=== PATIENT | female | born 1975 | race Caucasian/White ===

== ENCOUNTER 2024-07-26 20:55 | Inpatient (IN) | payer MEDICAID, SELFPAY ==
[2024-07-26] MEDS: miSOPROStoL 25 MCG/0.25 TABLET VAGINAL (00:01)
[2024-07-26 21:08] VITALS: BP 112/60; PULSE 73
[2024-07-26 21:10] VITALS: TEMP 37.2
[2024-07-26 21:50] LABS: Basophils Absolute Auto 0.02 K/uL (0.00-0.30); Basophils Percent Auto 0.2 % (0.0-3.0); Eosinophils Absolute Auto 0.08 K/uL (0.00-0.50); Eosinophils Percent Auto 0.8 % (0.0-7.0); Hematocrit 38.1 % (33.0-51.0); Hemoglobin* 12.7 gm/dL (12.0-16.0); Immature Granulocytes Abs Auto 0.02 K/uL (0.00-0.30); Immature Granulocytes Pct Auto 0.2 %; Lymphocytes Percent Auto 15.2 % (20-44); Mean Corpuscular HGB Conc 33 gm/dL (32-36); Mean Corpuscular Hemoglobin 31 pg (26-34); Mean Corpuscular Volume 93 fL (80-100); Monocytes Percent Auto 9.8 % (0.0-11.0); Neutrophils Percent Auto 73.8 % (42.0-72.0); Platelet Count* 159 K/uL (140-440); RDW Coefficient of Variation % 13.7 % (11.5-15.5); Red Blood Count 4.11 m/uL (4.00-5.20); White Blood Count* 10.57 K/uL (4.50-11.00)
[2024-07-26] MEDS: LACTATED RINGERS 1000 ML 1,000 ML 125 ML IV (21:58)
[2024-07-26] MEDS: AMPICILLIN 2 GM in 0.9 % SODIUM CHLORIDE Mini-bag 100 ML IVPB (21:59)
[2024-07-26 22:06] LABS: Slide Review Reflex No
[2024-07-26] MEDS: ACETAMINOPHEN 500 MG TABLET 1000 MG PO (22:30)
[2024-07-26] MEDS: hydrOXYzine pamoate 25 MG CAPSULE 100 MG PO (22:52)
[2024-07-26 23:52] VITALS: BP 118/68; PULSE 76
[2024-07-26 23:54] VITALS: TEMP 36.6
[2024-07-27] VITALS (46 sets, daily range): BP systolic 97–159; BP diastolic 51–115; PULSE 63–125; RESP 16–20; TEMP 36.4–37.1; O2SAT 88–100; BMI 28.5
[2024-07-27] MEDS: AMPICILLIN 1 GM in 0.9 % SODIUM CHLORIDE Mini-bag 100 ML IVPB ×3 (02:03→13:50)
[2024-07-27] MEDS: ACETAMINOPHEN 500 MG TABLET 1000 MG PO (04:05)
--- NOTE | 2024-07-27 06:58 | PM.OBHPLI ---
OB - H&P: HPI Labor/Induction History of Present Illness Time Seen by Provider: 06:00 Date Seen: 07/27/24 Chief Complaint: The patient is a 49 year old 7 para 3 at 39wks gestation by 7wk, who presented last evening for cervical ripening due to AMA. Chief complaint: IOL- AMA : 7 Para: 3 Date of last menstrual period: 08/30/23 Estimated date of delivery: 06/05/24 Gestational age based on last menstrual period: 49 Narrative: Leena Sofia is a 49 year old 7 para 3 at 39wks gestation by 7wk, who presented last evening for cervical ripening due to AMA. She had negative Bryan and level 2 anatomy US was wnl. Growth US 35wks with EFW 88%. Has had weekly BPP's since 32wks, most recent yesterday 01/13, cephalic position. No contractions yesterday. No LOF, no bleeding. Good FM. no headaches or vision changes. She has overall had uncomplicated . She has hx gaining 40-50pounds with prior pregnancies. Prior babies weight 8#1oz, 7# 14oz and 7#7oz. EFW this 88% at 35 wks (would be approximate 8#12oz baby at 39wks) History of Present Dating criteria: based on 1st trimester US only care: good care Ultrasounds: normal mid trimester US and other (35 wk growth US EFW 88%) Medical complications: none Labs Blood type: O (+) positive Rubella: immune RPR/VDLR: nonreactive GBS status: positive HBsAG: negative Meds Home Medications and Allergies Home Medications ?Medication ?Instructions ?Recorded ?Confirmed ?Type No Known Home Medications 07/26/24 07/26/24 History Allergies Allergy/AdvReac Type Severity Reaction Status Date / Time No Known Drug Allergies Allergy Verified 07/26/24 21:50 OB - H&P: Exam Physical Exam: Vital signs: Temp Pulse BP 98.4 F 75 105/51 L 07/27/24 05:06 07/27/24 04:59 07/27/24 04:59 Constitutional: Constitutional: no acute distress Routine HEENT Exam: Head: Present normal inspection ENT: Present mucous membranes moist Routine Respiratory Exam: Respiratory: Present CTA bilaterally Routine Cardiovascular Exam: Cardiovascular: RRR Detailed Labor and Delivery Exam: Patient Gravid: Yes Dilation (cm): 2 Effacement (%): 50 Cervix position: posterior Consistency: firm Fetus (Single): Station: -3 Amniotic Membrane Status: intact Heart Rate Baseline: 150 Monitor Accelerations: Present Monitor Decelerations: Late (occasional variables, lates) Halfway Variability: Moderate (6-25) Routine Psychiatric Exam: Present normal affect and cooperative OB - Results Labs Labs: Short CBC 07/26/24 Range/Units 21:42 WBC 10.57 (4.50-11.00) K/uL Hgb 12.7 (12.0-16.0) gm/dL Hct 38.1 (33.0-51.0) % Plt Count 159 (140-440) K/uL OB - Problem Based A/P Additional Plan (1) Advanced maternal age (AMA) in : Status: Acute (2) Term : Status: Acute Plan [id number] at 39wks here for induction due to AMA -GBS positive so antibiotics started last night -Received one dose cytotec for cervical ripening overnight. FHT's since baseline typically 140-150's with good variability and accels but with occasional decels that can be variable to late decels approximately 2-4 times an hour and can last 1-3 minutes, typically with moi 120-130 but has been deeper to 80 at times. She has received IVF bolus. -Plan monitor FHT after IVF bolus. Cervix still unfavorable. plan likely cook or pitocin but will monitor FHT's and let OB know prior to starting. 07/27/24 750 Addn: reviewed strip and discussed with OB surgeon corporate communications specialist. Plan is to start pitocin. Reviewed plan with pt and spouse and all ?'s answered. They were comfortable with plan.
[2024-07-27] MEDS: OXYTOCIN 30 unit/500 ML in NS 30 UNIT/500 ML BAG IVPB (07:57)
[2024-07-27] MEDS: LACTATED RINGERS 1000 ML 1,000 ML IV (12:50)
--- NOTE | 2024-07-27 13:13 | P.OBPN_ITS ---
Subjective Time Seen by Provider: 13:00 Date Seen: 07/27/24 Narrative: I evaluated strip around noon for induction followup and noted patient is having recurrent late decelerations/variables. Called and asked RN to check cervix and reassess. RN reported pt feeling mild contractions and 3/60/-3. Due to recurrent late decels, pitocin was cut in 1/2 (from 16 to 8) and IVF bolus started and I returned to Center. Pt reported to me contractions are more intense in last 20 min but still mild, 3/10. Objective Vital Signs: Last Vital Signs Temp 97.8 F 07/27/24 13:02 Pulse 66 07/27/24 13:06 Resp 20 07/27/24 13:02 BP 113/71 07/27/24 13:06 Pulse Ox 99 07/27/24 13:06 Pelvic Exam Dilation (cm): 3 Effacement (%): 60 Station: -3 Comments: head engaged, bulging bag Contractions Monitor mode: External Contraction Frequency: q2-3 Contraction pattern: Regular Contraction intensity: Mild Pitocin Rate (mU/min): 8 Assessment Assessment: induction ongoing Station: -3 Amniotic Membrane Status: AROM Heart Rate Baseline: 150 Verification Lead Variability: Moderate (6-25) Monitor Accelerations: Present Monitor Decelerations: Late (recurrent) Plan Plan: 49yo at 39wks here for induction due to AMA -has received cytotec x 1 overnight, pitocin started this morning. Now with recurrent late decels so pitocin decreased. I discussed with Dr Nava who recommended AROM if able. Discussed with pt current situation and trying to proceed with attempting vaginal delivery vs c/s. Reviewed at length with her and , all ?'s answered. Reviewed possible outcomes, options and risk vs benefits. Pt and agreed with proceeding with AROM. AROM performed with clear fluid. Will monitor FHT's closely +GBS, on abxs since last evening
[2024-07-27] MEDS: ROPIVACAINE 0.2% 100 ml 100 ML 12 MG EPIDURAL (16:16)
[2024-07-27] MEDS: LIDOCAINE 2% (PF) 5 ML VIAL EPIDURAL (16:16)
--- NOTE | 2024-07-27 16:17 | W.ANESCHARGE ---
Anesthesia Charges Start Date/Time Anesthesia Start Date: 07/27/24 Anesthesia Start Time: 15:55 Stop Date/Time Anesthesia Stop Date: 07/27/24 Anesthesia Stop Time: 16:25
--- NOTE | 2024-07-27 16:18 | P.ANBPRC_ITS ---
[facility] Medical History (Updated 07/27/24 @ 07:14 by Vanessa Cohen, DO) Colorectal polyp detected on colonoscopy ?K63.5 - Polyp of colon (ICD-10) Social History What is your current living situation?: I presently have a place to live Problems where you live: no known problems In the past 12 months, utilities in danger of being shut off: no In past 12 months, lack of transportation kept you from medical appts, meetings, work, or getting things needed for daily living: no In the past 12 mos, have been you worried that your food would run out before you had money to buy more?: never true In the past 12 mos, the food you bought just didn't last and you didn't have money to buy more?: never true Smoking Status: Never smoker How often does anyone, including family, friends and others, physically hurt you : never How often does anyone, including family, friends and others, insult or talk down to you: never How often does anyone, including family, friends and others, threaten you with harm: never How often does anyone, including family, friends and others, scream or curse at you: never Meds Home Medications and Allergies Home Medications ?Medication ?Instructions ?Recorded ?Confirmed ?Type No Known Home Medications 07/26/24 07/26/24 History Allergies Allergy/AdvReac Type Severity Reaction Status Date / Time No Known Drug Allergies Allergy Verified 07/26/24 21:50 Results Labs Labs: Laboratory Results - last 24 hr 07/26/24 21:42 WBC 10.57 RBC 4.11 Hgb 12.7 Hct 38.1 MCV 93 MCH 31 MCHC 33 RDW Coeff of Alonzo 13.7 Plt Count 159 Neut % (Auto) 73.8 H Lymph % (Auto) 15.2 L [place]tinger % (Auto) 9.8 Eos % (Auto) 0.8 Baso % (Auto) 0.2 Neut # (Auto) 7.80 H Lymph # (Auto) 1.60 [place] # (Auto) 1.00 H Eos # (Auto) 0.08 Baso # (Auto) 0.02 Abs Immat Gran (auto) 0.02 Imm/Tot Granulo (auto) 0.2 Blood Type O Positive Antibody Screen NEGATIVE Vital Signs Vital Signs: Last Vital Signs Temp 97.7 F 07/27/24 15:06 Pulse 67 07/27/24 16:16 Resp 20 07/27/24 15:06 BP 121/63 07/27/24 16:16 Pulse Ox 98 07/27/24 16:14 Weight: 83.915 kg Height: 171.45 cm Anesthesia Procedures Epidural Insertion Patient Location: OB Start Time: 15:55 Stop Time: 16:25 Start Date: 07/27/24 Stop Date: 07/27/24 Reason for Block: primary anesthetic Patient Position: sitting Performed By: Torey Billy Preanesthetic Checklist: IV checked, risks and benefits discussed, surgical consent, monitors and equipment checked, pre-op evaluation, timeout performed and anesthesia consent Prep: chlorhexidine gluconate Monitoring: blood pressure monitoring, plastics supervisor, continuous pulse oximetry and heart rate Approach: midline Vertebral Space: lumbar (1-5) Needle Type: Tuohy needle Injection Technique: continuous catheter (catheter) Needle gauge: 17 Needle Length (cm): 10 cm Needle Insertion Depth (cm): 5 Catheter Gauge: 19 Catheter Type: multi-orifice Catheter at skin depth (cm): 10 Test Dose Result: negative and lidocaine 1.5% with epinephrine 1 to 200,000
[2024-07-27] MEDS: miSOPROStoL 800 MCG/4 TABLET PR (17:19)
[2024-07-27] MEDS: TRANEXAMIC ACID 100 MG/ML INJ 1000 MG IV (17:30)
--- NOTE | 2024-07-27 20:20 | W.PM.VAGD1_ITS ---
Procedure Delivery date: 07/27/24 Procedure Done: Global Procedure Details: The patient is a 49 year-old admitted on 07/26/24 at 38w6d gestation for cervical ripening prior to induction.? Cervical exam on admission was 2 cm/thick/-3 station with membranes intact in vertex presentation.? She was not feeling any contractions.? heart rate demonstrated baseline 140-150 bpm with moderate variability, + accelerations, - decelerations; a category 1 tracing.? Pt was started on IV abx on admission evening of 07/26/24 for GBS positive status. She received 1 dose vaginal cytotec. FHT's developed occasional decelerations requiring IVF and further monitoring. Pitocin was started morning of 07/27/24 and increased per protocol. Fetus developed recurrent late decelerations. Pitocin cut in half and IVF given. Case discussed with OB surgeon who recommended AROM. AROM occurred at 1301 with clear fluid. FHT's had improvement. Labor became active around 1330. ? Labor Analgesia:? Epidural ? Pitocin:? Yes ? Labor onset:? 1331 ? Complete:? 1535 ? Pushing:? 1636 ? heart tones during second stage were 140-150 with decels with pushing with good recovery between. ? At 1650 a viable male infant delivered in vertex presentation over intact perineum via spontaneous vaginal delivery.?There was a partial neck/body cord that was delivered through and was placed on maternal abdomen.? was dried and stimulated on maternal abdomen. had spontaneous cry but remaine d cyanotic so cord was clamped and cut after a 60 second delay.?Infant taken to warmer. CPAP given to infant with good response. weight 8#10oz.? 8 at 1 minute and 9 at 5 minutes.? Shoulder dystocia: no. ? Active management of placenta performed. Placenta delivered spontaneously and complete at 1654 with a 3 vessel cord. Mother had 2nd degree midline perineal tear which was repaired using 3-0 vicryl by standard technique. Tear was hemostatic. There was recurrent small trickling of blood from vagina. Tear was hemostatic. pt has had significant vaginal/labial swelling during third trimester at third trimester baseline and this was increased after delivery making complete exam of cervix difficult. Visualized parts of cervix were intact. Uterus with firm with abdominal palpation but distal uterus/cervix was floppy and so bimanual massage performed. Cytotec placed rectally. Appeared improved but then with intermittent trickle of blood so TXA given. ? Mother and infant were stable after delivery. ? Blood loss: 200 mL. Blood loss measurement type: QBL ? Sponge and needles counts are correct. Events: Labor Induction and AMA Intrapartal Events: Labor Induction Delivery monitor: external FHT Route of delivery: Laceration description: Perineal - 2nd Degree Delivery repair: Vicryl Estimated blood loss (mL): 200 Anesthesia type: Epidural [place] Infant Gender: Male presentation: vertex Placental Delivery Description: Spontaneous Cord Description: 3 Vessels total score - 1 minute: 8 total score - 5 minute: 9
[2024-07-28] MEDS: IBUPROFEN 600 MG TABLET PO ×2 (00:55→13:05)
[2024-07-28 02:30] LABS: Rapid Plasma Reagin (RPR) Non Reactive (Non Reactive)
[2024-07-28 04:45] VITALS: BP 101/58; PULSE 64; RESP 16; TEMP 36.3; O2SAT 97
[2024-07-28 06:34] LABS: Hemoglobin* 12.4 gm/dL (12.0-16.0)
[2024-07-28] MEDS: ACETAMINOPHEN 500 MG TABLET 1000 MG PO ×2 (08:11→16:58)
[2024-07-28] MEDS: DOCUSATE SODIUM 100 MG CAPSULE PO (08:12)
[2024-07-28 08:16] VITALS: BP 104/66; PULSE 71; RESP 16; TEMP 36.3; O2SAT 100
--- NOTE | 2024-07-28 11:37 | PM.OBDSVD1 ---
DS: Providers Provider Date Seen: 07/28/24 Date of admission: 07/26/24 20:55 Primary care physician: Vanessa Cohen DO Admitting Clinician: Vanessa Cohen DO Attending Physician on discharge: Vanessa Cohen DO DS: Diagnosis Discharge Diagnosis (1) Vaginal delivery: Status: Acute Problem details: Patient did well . Bleeding and pain improving. No concerns. Exam Const: Vital Signs, click to edit/add: Vital Signs - 24 hr 07/27/24 12:03 07/27/24 12:04 07/27/24 13:02 Temperature 97.6 F 97.8 F Pulse Rate 71 Pulse Rate [Pulse Oximeter] Respiratory Rate 18 20 Blood Pressure 98/53 L Blood Pressure [Ri ght Arm] Pulse Oximetry 97 Oxygen Delivery Me thod 07/27/24 13:06 07/27/24 13:54 07/27/24 13:55 Temperature Pulse Rate 66 Pulse Rate [Pulse Oximeter] Respiratory Rate Blood Pressure 113/71 Blood Pressure [Ri ght Arm] Pulse Oximetry 99 89 98 Oxygen Delivery Me thod 07/27/24 13:56 07/27/24 15:05 07/27/24 15:06 Temperature 97.8 F 97.7 F Pulse Rate 63 68 Pulse Rate [Pulse Oximeter] Respiratory Rate 20 20 Blood Pressure 100/61 121/66 Blood Pressure [Ri ght Arm] Pulse Oximetry 99 Oxygen Delivery Me thod 07/27/24 15:59 07/27/24 16:04 07/27/24 16:08 Temperature Pulse Rate 75 Pulse Rate [Pulse Oximeter] Respiratory Rate Blood Pressure 119/66 Blood Pressure [Ri ght Arm] Pulse Oximetry 99 100 Oxygen Delivery Me thod 07/27/24 16:09 07/27/24 16:10 07/27/24 16:12 Temperature Pulse Rate 78 75 Pulse Rate [Pulse Oximeter] Respiratory Rate Blood Pressure 133/61 125/64 Blood Pressure [Ri ght Arm] Pulse Oximetry 98 Oxygen Delivery Me thod 07/27/24 16:14 07/27/24 16:16 07/27/24 16:20 Temperature Pulse Rate 73 67 67 Pulse Rate [Pulse Oximeter] Respiratory Rate Blood Pressure 126/63 121/63 118/62 Blood Pressure [Ri ght Arm] Pulse Oximetry 98 Oxygen Delivery Me thod 07/27/24 16:22 07/27/24 16:24 07/27/24 16:26 Temperature Pulse Rate 74 Pulse Rate [Pulse Oximeter] Respiratory Rate Blood Pressure 129/58 L 121/74 132/72 Blood Pressure [Ri ght Arm] Pulse Oximetry Oxygen Delivery Me thod 07/27/24 16:28 07/27/24 16:30 07/27/24 16:34 Temperature Pulse Rate 68 64 74 Pulse Rate [Pulse Oximeter] Respiratory Rate Blood Pressure 123/65 118/66 126/68 Blood Pressure [Ri ght Arm] Pulse Oximetry Oxygen Delivery Me thod 07/27/24 16:36 07/27/24 16:38 07/27/24 16:44 Temperature Pulse Rate 67 66 64 Pulse Rate [Pulse Oximeter] Respiratory Rate Blood Pressure 125/71 120/67 116/58 L Blood Pressure [Ri ght Arm] Pulse Oximetry Oxygen Delivery Ga thod 07/27/24 16:46 07/27/24 16:56 07/27/24 16:56 Temperature 98.7 F Pulse Rate 66 69 Pulse Rate [Pulse Oximeter] Respiratory Rate Blood Pressure 112/55 L 110/57 L Blood Pressure [Ri ght Arm] Pulse Oximetry Oxygen Delivery Ga thod 07/27/24 17:12 07/27/24 17:12 07/27/24 17:27 Temperature 98.6 F Pulse Rate 67 66 Pulse Rate [Pulse Oximeter] Respiratory Rate Blood Pressure 115/57 L 104/56 L Blood Pressure [Ri ght Arm] Pulse Oximetry Oxygen Delivery Ga thod 07/27/24 17:27 07/27/24 17:47 07/27/24 17:57 Temperature 98.8 F Pulse Rate 125 H 72 Pulse Rate [Pulse Oximeter] Respiratory Rate Blood Pressure 159/115 H 97/55 L Blood Pressure [Ri ght Arm] Pulse Oximetry Oxygen Delivery Me thod 07/27/24 17:57 07/27/24 18:12 07/27/24 18:12 Temperature 98.5 F 98.5 F Pulse Rate 71 Pulse Rate [Pulse Oximeter] Respiratory Rate Blood Pressure 132/62 Blood Pressure [Ri ght Arm] Pulse Oximetry Oxygen Delivery Ga thod 07/27/24 18:27 07/27/24 18:27 07/27/24 18:42 Temperature 98.4 F Pulse Rate 79 75 Pulse Rate [Pulse Oximeter] Respiratory Rate Blood Pressure 119/57 L 117/60 Blood Pressure [Ri ght Arm] Pulse Oximetry Oxygen Delivery Me thod 07/27/24 18:42 07/27/24 18:57 07/27/24 18:57 Temperature 98.8 F 98.5 F Pulse Rate 73 Pulse Rate [Pulse Oximeter] Respiratory Rate Blood Pressure 103/59 L Blood Pressure [Ri ght Arm] Pulse Oximetry Oxygen Delivery Me thod 07/27/24 22:30 07/28/24 04:45 07/28/24 08:16 Temperature 98.5 F 97.4 F L 97.3 F L Pulse Rate Pulse Rate [Pulse Oximeter] 75 64 71 Respiratory Rate 16 16 16 Blood Pressure Blood Pressure [Ri ght Arm] 101/58 L 104/66 Pulse Oximetry 97 97 100 Oxygen Delivery Me thod Room Air Room Air Room Air Common normals: no apparent distress Resp: Common normals: normal respiratory effort GI: Common normals: soft to palpation Palpation: soft; no splenomegaly : Uterus: U/2 and firm Lochia: small Uterus palpation: uterus nontender OB - DS: Summary Hospital Course Hospital Course: The patient is a 49 year old G [] P [] at [] weeks gestation that was admitted to the Center on 07/26/24 for []. She had an [uncomplicated/complicated] [vaginal/] delivery. She delivered a viable [male/female] . She is [breast/bottle] feeding. the patient has done well. Peripartum Data Infant delivery method: Vaginal Laceration description: Perineal - 2nd Degree complications: none [place] Gender: Male Status at Discharge Functional status at discharge: independent ambulation Overall status at discharge: patient is back to baseline Time Spent with Patient Time attestation: Total time spent providing and/or coordinating discharge services: Time spent: Less than 30 minutes Discharge Plan Discharge Disposition: Home, Self-Care Date of Admission: 07/26/24 20:55 Primary Care Provider: Vanessa Cohen Condition: Improved Anticipated Discharge Date/Time: 07/28/24 18:35 Discharge Medications: No Action No Known Home Medications Discharge Orders: Discharge Order (Routine); Ordered 07/28/24 Ordered By: Espinoza Melchor Patient Education: Vaginal Delivery (DC) Activity Level: Activity as Tolerated Follow Up Appointments: Vanessa Cohen DO [Primary Care Provider] - Forms: MyHealth Info Instructions Discharge Comments: Schedule 6 week visit
--- NOTE | 2024-07-28 12:35 | PM.ANPOST ---
Post Anesthesia Note Post Anesthesia Note Patient seen: Inpatient Respiratory Status: adequate Cardiovascular Status: adequate Mental Status: baseline Pain: adequate Temp: baseline Anesthetic awareness: N/A Complications: none Follow care: none
[2024-07-28 12:50] VITALS: BP 106/63; PULSE 65; RESP 16; TEMP 36.3; O2SAT 97
[2024-07-28 16:37] VITALS: BP 110/71; PULSE 59; RESP 16; TEMP 36.6; O2SAT 98
== END 2024-07-28 19:14 | disposition home or self-care (01) | DRG 807 ==
PROVIDERS: Admitting Provider Family Medicine; PCP Family Medicine; Visit Provider Family Medicine
DX: O70.1 Second degree perineal laceration during delivery (principal); Z37.0 Single live birth; Z3A.38 38 weeks gestation of pregnancy; O99.824 Streptococcus B carrier state complicating childbirth
CPT/HCPCS: 01967; 36415; 59200; 85018; 85025; 86592; 86850; 86900; 86901; A9270; J0290; J2371; J2795; J7120

== ENCOUNTER 2024-10-05 09:30 | Outpatient (RCR) | payer MEDICAID, SELFPAY | END 2025-02-02 23:59 | disposition home or self-care (01) | PROVIDERS: PCP Family Medicine; Visit Provider Family Medicine | DX: N81.9 Female genital prolapse, unspecified (principal); K62.3 Rectal prolapse; Z34.93 Encounter for supervision of normal pregnancy, unspecified, third trimester; Z51.89 Encounter for other specified aftercare | CPT/HCPCS: 97112; 97140; 97161; 97530; 97535 ==